=== PATIENT | female | born 1965 | race African-American/Black ===

== ENCOUNTER 2018-10-07 05:57 | Day surgery (SDC) | payer MEDICAID ==
[~2018-10-07] VITALS: Ht 165.1 cm; Wt 138.8 kg
[~2018-10-07 05:57] MED LIST: ASPI-1159 PO; ATEN1TAB42 PO; BENZ100C86 PO; CHOL20004 PO; HYDR25TA PO; LISI40TA4 PO; NAPR500T7 PO; OMEP40CA34 PO
[2018-10-07] MEDS ORDERED: LACTATED RINGERS 1,000 ML IV SCH (06:20)
[2018-10-07] MEDS ORDERED: FENTANYL CITRATE/PF 50MCG/ML 2ML VIAL ONE (06:37)
[2018-10-07] MEDS ORDERED: MIDAZOLAM HCL 2 MG/2 ML VIAL ONE (06:37)
[2018-10-07] MEDS ORDERED: PROPOFOL 200MG/20ML VIAL IV ONE (06:40)
[2018-10-07] MEDS ORDERED: ROCURONIUM BROMIDE 10MG/ML VIAL 5ML IV ONE (06:42)
[2018-10-07] MEDS ORDERED: SUCCINYLCHOLINE CHLORIDE 200MG/10ML IV ONE (06:44)
[2018-10-07] MEDS ORDERED: CEFAZOLIN SODIUM 1000MG/VIAL ONE ×2 (06:47→07:35)
[2018-10-07] MEDS ORDERED: EPHEDRINE SULFATE 50MG/ML VIAL ONE (06:47)
[2018-10-07] MEDS ORDERED: SODIUM CHLORIDE 0.9% 10ML VIAL ONE ×2 (06:47→07:35)
[2018-10-07] MEDS ORDERED: TERBUTALINE SULFATE 1MG/ML VIAL ONE (07:30)
[2018-10-07] MEDS ORDERED: SKIN ADHESIVE 0.7 GM EA TOP ONE (07:42)
[2018-10-07] MEDS ORDERED: BUPIVACAINE HCL 0.5% (5MG/ML) 50ML ONE (07:42)
[2018-10-07] MEDS ORDERED: METOCLOPRAMIDE HCL 10MG/2ML VIAL ONE (07:45)
[2018-10-07] MEDS ORDERED: ONDANSETRON HCL 4MG/2ML INJ ONE (07:45)
[2018-10-07] MEDS ORDERED: HYDROMORPHONE HCL/PF 2MG/ML CPJ IV PRN (08:30)
[2018-10-07] MEDS ORDERED: BENA40TA9 PO (08:44)
== END 2018-10-07 11:30 | disposition home or self-care (01) ==
LOC: OR 05:57
PROVIDERS: ATTEND Surgery
DX: N64.1 Fat necrosis of breast (principal); I10 Essential (primary) hypertension; K21.9 Gastro-esophageal reflux disease without esophagitis; Z90.710 Acquired absence of both cervix and uterus; E66.01 Morbid (severe) obesity due to excess calories
CPT/HCPCS: 19020; 88307; J0330; J0690; J2250; J2405; J2704; J2765; J3010; J3105; J3490